=== PATIENT | male | born 1995 | race Caucasian/White ===

== ENCOUNTER 2018-01-31 05:56 | Emergency (ER) | payer MEDICAID ==
[~2018-01-31] VITALS: Ht 188 cm; Wt 72.1 kg
[~2018-01-31 05:56] MED LIST: IBUP-1574 PO
[2018-01-31 06:07] VITALS: BP 124/68
[2018-01-31] MEDS ORDERED: diphenhydrAMINE 25mg capsule PO ONE (06:45)
[2018-01-31] MEDS ORDERED: proCHLORperazine 10mg tablet PO ONE (06:45)
== END 2018-01-31 07:06 | disposition home or self-care (01) ==
LOC: ER 05:56
DX: R51 Headache (principal); R11.10 Vomiting, unspecified; F17.200 Nicotine dependence, unspecified, uncomplicated; Z79.899 Other long term (current) drug therapy
CPT/HCPCS: 99283; Q0163; Q0164